=== PATIENT | male | born 1990 | race Caucasian/White ===

== ENCOUNTER 2017-03-26 02:28 | Emergency (ER) | payer OTHER ==
[~2017-03-26] VITALS: Ht 167.6 cm; Wt 88.6 kg
[~2017-03-26 02:28] MED LIST: HYDR-4003 PO; IBUP-1827 PO
[2017-03-26 02:35] VITALS: BP 142/91; PULSE 89; RESP 16; O2SAT 97
[2017-03-26] MEDS ORDERED: METH750T3 PO (02:39)
--- NOTE | 2017-03-26 02:56 | ED.REPORT ---
HPI-Abd Pain M Under 40 Date of Service Mar 26, 2017 ED Provider: Dr. Bliss The pt is a 26 y/o male with a hx of HTN, Hep C and heroin use presents to the ED complaining of waxing and waning, dull periumbilical pain since last night. Associated sx include nausea, vomiting, and diaphoresis. He denies chills and fever. He used heroin prior to arrival. Nursing Notes Stated Complaint: FLU LIKE ILLNESS Chief Complaint: Male Abdominal Pain Nursing Notes Reviewed: Yes Allergies: Coded Allergies: No Known Allergies (Unverified , 04/10/16) Scheduled PRN Ibuprofen (Ibuprofen) 600 Mg Tablet 600 MG PO QID PRN PRN For Pain Methocarbamol (Methocarbamol) 750 Mg Tablet 750 MG PO QID PRN PRN For Spasm General Time Seen by MD: 02:56 Chief Complaint Abdominal pain Hx Obtained From: Patient Arrived By: Walk-in Sudden in Onset?: Yes Onset Occurred: Yesterday Symptom Duration: Since onset Location: : Periumbilical Quality: Painful Radiation: : Does not radiate Severity: Current: Mild Severity: Maximum: Moderate Recent Healthcare: Recent doctor visit Past Medical History Past Medical History Hep C Heroiun use Reports: Hypertension Past Surgical History left arm Reports: Tonsillectomy Smoking History Current Every Day Smoker Social History Heroin Alcohol Use: "Social" Drug Use: Denies drug use, THC Other Social History: Good social support, Local resident Occupation lives with firlfriend, on school break Ambulatory Status Independent Review of Systems Constitutional: Denies: Chills, Fever GI: Reports: Abdominal pain, Nausea, Vomiting Complete sys rev & neg: except as marked. Skin: Reports Diaphoresis Physical Exam Initial Vital Signs Vital Signs (First) Date Time Temp Pulse Resp B/P Pulse Ox O2 Delivery O2 Flow Rate FiO2 03/26/17 02:35 37.0 89 16 142/91 97 Room Air Initial VS: Reviewed Neck: Supple, Non-tender, Full range of motion Extremities: Vascular intact, Neuro intact, No swelling, No tenderness Skin: Warm, Dry, No cyanosis Neurologic: Alert, Oriented, Nonfocal General/Constitutional: Awake, Alert, Cooperative Appearance / Presentation: Positive: Intoxicated, Obese Respiratory / Chest: Atraumatic, Breath sounds NL, Breath sounds = bilat, No respiratory distress, No rales, No rhonchi, No wheezing Cardiovascular: Heart rate NL, Regular rhythm, Heart sounds NL, No gallop, No murmurs, No rubs Abdomen: Atraumatic, Soft, Non-tender Back: Atraumatic, Full range of motion Head / Eyes: Atraumatic, Normocephalic 3mm pupils which are not very reactive. Interpretation & Diagnostics Lab Results Interpretation Result Diagram: 03/26/17 0405 03/26/17 0405 Test 03/26/17 04:05 03/26/17 06:05 White Blood Count 11.1th/mm3 (3.8-10.1) Red Blood Count 4.90mil/mm3 (4.40-5.80) Hemoglobin 14.9g/dL (13.8-17.2) Hematocrit 41.9% (41.0-50.0) Mean Corpuscular Volume 85.5fL (81-100) Mean Corpuscular Hemoglobin 30.4pg (27.0-35.0) Mean Corpuscular Hemoglobin Concent 35.6% (32.0-37.0) Red Cell Distribution Width 13.3% (12.3-15.4) Platelet Count 227bil/L (150-400) Neutrophils (%) (Auto) 65.7% (40-74) Lymphocytes (%) (Auto) 21.7% (14-46) Monocytes (%) (Auto) 10.8% (4-12) Eosinophils (%) (Auto) 1.2% (0-5) Basophils (%) (Auto) 0.3% (0-3) Sodium Level 140mEq/L (134-144) Potassium Level 3.4mEq/L (3.5-5.2) Chloride Level 99mEq/L (97-108) Carbon Dioxide Level 24mmol/L (18-29) Blood Urea Nitrogen 10mg/dL (6-20) Creatinine 0.73mg/dL (0.76-1.27) Estimat Glomerular Filtration Rate 140mL/min (>59) Glucose Level 103mg/dL (60-99) Calcium Level 9.9mg/dL (8.5-10.1) Magnesium Level 1.7mg/dL (1.6-2.6) Total Bilirubin 1.2mg/dL (0.0-1.2) Aspartate Amino Transf (AST/SGOT) 568U/L (0-50) Alanine Aminotransferase (ALT/SGPT) 922U/L (0-44) Alkaline Phosphatase 66U/L (25-150) Total Protein 7.3g/dL (6.4-8.4) Albumin 4.4g/dL (3.4-5.0) Lipase 11U/L (13-60) Hold Huber Top Tube Received (Received) Urine Color Chiquis (YELLOW) Urine Appearance Hazy (CLEAR,HAZY) Urine pH 7.0 (5.0-8.0) Urine Specific Irving 1.070 (1.003-1.035) Urine Protein Negativemg/dL (NEG,TRACE) Urine Glucose (UA) Negativemg/dL (NEGATIVE) Urine Ketones 15mg/dL (NEGATIVE) Urine Occult Blood Negative (NEGATIVE) Urine Nitrite Negative (NEGATIVE) Urine Bilirubin Small (NEGATIVE) Urine Ictotest Positive (Negative) Urine Urobilinogen Normalmg/dL (NORMAL) Urine Leukocyte Esterase Negative (NEGATIVE) Urine RBC 0-2/hpf (0-2) Urine WBC 0-5/hpf (0-5) Urine Epithelial Cells Occasional/hpf (NONE-MOD) Urine Crystals None seen (NONE SEEN) Urine Bacteria Few/hpf (NONE-FEW) Urine Hyaline Casts None/lpf (NONE) Urine Granular Casts None seen (NONE SEEN) Urine Waxy Casts None seen (NONE SEEN) Urine Red Blood Cell Casts None seen (NONE SEEN) Urine White Blood Cell Casts Rare (NONE SEEN) Urine Mucus Present (None Seen) Urine Trichomonas None seen (NONE SEEN) Urine Yeast None (NONE SEEN) Urinalysis Comment None Urine Culture Reflexed Not indicated CT Abd / Pelvis Interpretation No acute findings are identified. Signed by Dr. Al Mack 03/26/17 05:40 Study type: Abdominal CT IV contrast Interpretation / Wet Read by: Interpret - Radiologist Re-Eval/Medical Decision Med Decision/Clinical Course 26-year-old presents with prolonged abdominal pain crampy low grade but persistent and worsening. Exam is basically unremarkable. He is intoxicated presently on heroin. CT scan shows no evidence of appendicitis or other significant findings. He is constipated as expected. LFTs show elevations of his transaminases and he is known to have hepatitis C. No other immediate surgical issues and he is discharged now in stable condition. Source of Hx: Old records Counseled Regarding: Diagnosis, Lab results, Need for follow-up, When/why to return to ED Patient Discharge & Departure Primary Impression: Generalized abdominal pain Additional Impressions: Heroin abuse Hepatitis C Disposition: Home Discharge Condition All VS Reviewed: Yes Condition: Stable Referrals: Starla Beauchamp PA-C (PCP) Scribe Attestation Portions of this note were transcribed by Debo Packer. I,, personally performed the history, physical exam and medical decision-making;I reviewed and confirmed the accuracy of the information in the transcribed note. Signed by Eve Alvarado. 03/26/17 copies to: Starla Beauchamp PA-C, Christopher W MD Mar 26, 2017 02:56 Debo Packer Mar 26, 2017 03:43
[2017-03-26] MEDS ORDERED: 0.9% Sodium Chloride 1,000 ML IV ONE (03:52)
[2017-03-26] MEDS ORDERED: Pantoprazole 40 mg ER24 Tablet PO ONE (03:55)
[2017-03-26] MEDS ORDERED: Ondansetron 2 mg/mL 2 mL Inj IVPUSH ONE (03:55)
[2017-03-26 04:17] LABS: BASOPHILS % (AUTO) 0.3 % (0-3); EOSINOPHILS % (AUTO) 1.2 % (0-5); MONOCYTES % (AUTO) 10.8 % (4-12); Mean Corpuscular Hemoglobin 30.4 pg (27.0-35.0); Mean Corpuscular Volume 85.5 fL (81-100); NEUTROPHILS % (AUTO) 65.7 % (40-74); Platelet Count 227 bil/L (150-400)
[2017-03-26 04:37] LABS: Magnesium 1.7 mg/dL (1.6-2.6)
[2017-03-26 05:32] VITALS: BP 141/64; PULSE 89; RESP 18; O2SAT 99
[2017-03-26 06:29] LABS: APPEARANCE,URINE HAZY (CLEAR,HAZY); COLOR,URINE AMBER (YELLOW); OCCULT BLOOD,URINE NEGATIVE (NEGATIVE); UROBILINOGEN,URINE NORMAL (NORMAL)
[2017-03-26 06:30] LABS: ICTOTEST,URINE POSITIVE (Negative)
[2017-03-26 07:18] VITALS: BP_SYST 134; PULSE 106; RESP 18; O2SAT 98
--- NOTE | 2017-03-26 10:59 | DRSVH ---
PROCEDURE: CT ABDOMEN AND PELVIS WITH CONTRAST ([id number]) INDICATIONS: 26 year-old male with history of IV drug use, with abdominal pain for 36 hours. TECHNIQUE: After the administration of intravenous contrast, 5 mm thick sections acquired from the diaphragm to the symphysis. 5 mm coronal and sagittal reformats were acquired. For radiation dose reduction, the following was used: automated exposure control, adjustment of mA and/or kV according to patient siz e. COMPARISON: None. FINDINGS: Preliminary interpretation rendered by [facility]. Image quality: Several images are degraded by patient motion. ABDOMEN: Lung bases: Lung bases are clear, except for minimal dependent atelectasis. Heart size is normal. Solid organs: Liver and spleen are normal in size, with diffuse fatty infiltration of the liver. Ga llbladder wall thickness is normal. Biliary system is non dilated. Pancreas enhances normally. No adrenal nodules. Kidneys demonstrate normal size and enhancement, without hydronephrosis. Peritoneum and bowel: Bowel loops demonstrate normal wall thickness and caliber. The appendix is no t well-seen. No free fluid or air. Nodes and vessels: No retroperitoneal or mesenteric adenopathy by size criteria. Aorta and inferior vena cava are normal in size. Miscellaneous: No ventral hernias. PELVIS: Genitourinary: Bladder wall thickness is normal. Prostate gland is normal in size. Miscellaneous: No inguinal hernias or adenopathy. Bones: No suspicious bony lesions. No vertebral body compression fractures. IMPRESSION: No imaging explanation for abdominal pain. The appendix is unable to be seen; however, ab sence of inflammatory changes in the right lower quadrant mesentery would make acute appendicitis unl ikely. No significant discrepancy with preliminary [facility] report. Dictated by: German Liang M.D. on 03/26/2017 at 10:52 Approved by: German Liang M.D. on 03/26/2017 at 10:57
== END 2017-03-26 07:10 | disposition home or self-care (01) ==
LOC: SED 02:28
DX: R10.84 Generalized abdominal pain (principal); F11.10 Opioid abuse, uncomplicated; B19.20 Unspecified viral hepatitis C without hepatic coma; I10 Essential (primary) hypertension; F17.200 Nicotine dependence, unspecified, uncomplicated
CPT/HCPCS: 36415; 74177; 80053; 81000; 83690; 83735; 85025; 96361; 96374; 96375; 99285; J1885; J2405; J7030; Q9967